=== PATIENT | female | born 1985 | race Caucasian/White ===

== ENCOUNTER 2017-04-05 21:47 | Emergency (ER) | payer OTHER ==
[~2017-04-05] VITALS: Ht 162.6 cm; Wt 77.2 kg
[~2017-04-05 21:47] MED LIST: LEVO1IUD2 PV; MTR600X PO
[2017-04-05 22:03] VITALS: TEMP 36.9; Ht 162.6 cm; Wt 77.2 kg
[2017-04-05] MEDS ORDERED: KETOROLAC TROMETHAMINE 15 MG/ML VIAL IV STA (23:22)
[2017-04-05] MEDS ORDERED: KETOROLAC TROMETHAMINE 30 MG/ML VIAL ONE (23:42)
[2017-04-05 23:45] LABS: BASO % 0.3 %; BASO ABS # 0.03 K/uL (0-0.2); EOS % 0.6 %; EOS ABS # 0.06 K/uL (0-0.5); HEMATOCRIT 38.2 % (37-47); HEMOGLOBIN 13.3 g/dL (12.0-16.0); IG# 0.02 K/uL (0.00-0.02); LYMPH % 29.7 %; LYMPH ABS # 2.78 K/uL (1.2-3.4); MEAN CELL VOLUME 92.5 fL (80-100); MEAN CORPUSCULAR HEMOGLOBIN 32.2 pg (25-34); MEAN CORPUSCULAR HGB CONC 34.8 g/dl (32-36); MEAN PLATELET VOLUME 11.1 fL (7.4-10.4); MONO % 10.2 %; MONO ABS # 0.96 K/uL (0.11-0.59); NEUT ABS # 5.52 K/uL (1.4-6.5); PLATELET COUNT 207 K/uL (130-400); RED CELL DISTRIBUTION WIDTH CV 12.7 % (11.5-14.5); RED CELL DISTRIBUTION WIDTH SD 43.2 fL (36.4-46.3); WHITE BLOOD COUNT 9.37 K/uL (4.8-10.8)
[2017-04-06] MEDS ORDERED: OPTIRAY 320 IV PRN
[2017-04-06 00:03] LABS: ALBUMIN 4.4 gm/dl (3.4-5.0); CALCIUM 9.5 mg/dl (8.5-10.1); CREATININE 0.77 mg/dl (0.60-1.20); POTASSIUM 3.8 mmol/L (3.5-5.1)
[2017-04-06 00:06] LABS: TOTAL PROTEIN 7.6 gm/dl (6.4-8.2)
[2017-04-06] MEDS ORDERED: GI COCKTAIL PO STA (01:59)
[2017-04-06] MEDS ORDERED: LIDOCAINE HCL 2% VISC SOLN 20 ML UDC ONE ×2 (02:03→02:05)
[2017-04-06] MEDS ORDERED: ALUMINUM/MAGNESIUM SUSP 30 ML UDC ONE (02:07)
[2017-04-06] MEDS ORDERED: RANITIDINE HCL 150 MG TAB PO STA (02:35)
[2017-04-06] MEDS ORDERED: OMEP40CA41 PO (02:43)
--- NOTE | 2017-04-06 02:47 | EMERGENCY ROOM VISIT NOTE ---
History First contact with patient: 23:03 Chief Complaint: ABDOMINAL PAIN Stated Complaint: RIGHT ABDOMINAL PAIN BLOATING History of Present Illness The patient is a 32 year old female who presents to the Emergency Room with complaints of right-sided abdominal pain. The patient reports that 2 days ago, she woke up with abdominal pain and bloating. She took Gas-X and MiraLAX without any improvement. She states that the pain seemed to improve yesterday, but worsened again. The pain is in the right upper abdomen and radiates into the back. She reports associated acid reflux and bloating. She has been having normal bowel movements. She reports a history of cholecystectomy and partial hysterectomy. 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 She rates her overall discomfort a 6/10. She denies fevers, urinary symptoms, vomiting, chest pain or shortness of breath. Review of Systems A complete 10 point review of systems was reviewed with the patient with pertinent positives and negatives as per history of present illness. All else were negative. Past Medical/Surgical History Medical Problems: (1) Ovarian cyst Social History Smoking Status: Never Smoker Alcohol Use: none Marital Status: Housing Status: lives with family Occupation Status: unemployed Current/Historical Medications Scheduled Levonorgestrel (Iud) (Mirena), 1 IUD PV UD Omeprazole (Prilosec), 40 MG PO DAILY Physical Exam Vital Signs Date Time Temp Pulse Resp B/P (MAP) Pulse Ox O2 Delivery O2 Flow Rate FiO2 04/06/17 02:52 70 18 121/70 98 04/06/17 01:31 80 18 137/71 99 Room Air 04/05/17 22:03 36.9 91 18 126/77 100 Room Air Physical Exam VITALS: Vitals are noted on the nurse's note and reviewed by myself. Vital signs stable. GENERAL: This is a 32-year-old female, in no acute distress, nondiaphoretic, well-developed well-nourished. SKIN: No rashes noted. HEENT: Normocephalic. PERRLA. EOMI. Mucous membranes moist. Neck is supple without nuchal rigidity. HEART: Regular rate and rhythm without murmurs gallops or rubs. LUNGS: Clear to auscultation bilaterally without wheezes, rales or rhonchi. ABDOMEN: Positive bowel sounds x 4. Soft, mild tenderness in the right upper quadrant. No guarding or rebound tenderness. NEURO: Patient was alert and oriented to person place and time. Medical Decision & Procedures ER Provider Diagnostic Interpretation: CT ABDOMEN & PELVIS WITH CONTRAST: 5.4 cm right ovarian cyst. Small amount of fluid in the pelvis. Cholecystectomy. No evidence for appendicitis. Nonobstructive bowel gas pattern. Small mesenteric nodes. Radiologist: Deysi Owens MD Laboratory Results 04/05/17 23:35 Red Blood Count 4.13, Mean Corpuscular Volume 92.5, Mean Corpuscular Hemoglobin 32.2, Mean Corpuscular Hemoglobin Concent 34.8, Mean Platelet Volume 11.1, Neutrophils (%) (Auto) 59.0, Lymphocytes (%) (Auto) 29.7, Monocytes (%) (Auto) 10.2, Eosinophils (%) (Auto) 0.6, Basophils (%) (Auto) 0.3, Neutrophils # (Auto ) 5.52, Lymphocytes # (Auto) 2.78, Monocytes # (Auto) 0.96, Eosinophils # (Auto ) 0.06, Basophils # (Auto) 0.03 04/05/17 23:35 Test 04/05/17 23:35 04/05/17 23:40 White Blood Count 9.37 K/uL (4.8-10.8) Red Blood Count 4.13 M/uL (4.2-5.4) Hemoglobin 13.3 g/dL (12.0-16.0) Hematocrit 38.2 % (37-47) Mean Corpuscular Volume 92.5 fL (80-100) Mean Corpuscular Hemoglobin 32.2 pg (25-34) Mean Corpuscular Hemoglobin Concent 34.8 g/dl (32-36) Platelet Count 207 K/uL (130-400) Mean Platelet Volume 11.1 fL (7.4-10.4) Neutrophils (%) (Auto) 59.0 % Lymphocytes (%) (Auto) 29.7 % Monocytes (%) (Auto) 10.2 % Eosinophils (%) (Auto) 0.6 % Basophils (%) (Auto) 0.3 % Neutrophils # (Auto) 5.52 K/uL (1.4-6.5) Lymphocytes # (Auto) 2.78 K/uL (1.2-3.4) Monocytes # (Auto) 0.96 K/uL (0.11-0.59) Eosinophils # (Auto) 0.06 K/uL (0-0.5) Basophils # (Auto) 0.03 K/uL (0-0.2) RDW Standard Deviation 43.2 fL (36.4-46.3) RDW Coefficient of Variation 12.7 % (11.5-14.5) Immature Granulocyte % (Auto) 0.2 % Immature Granulocyte # (Auto) 0.02 K/uL (0.00-0.02) Anion Gap 9.0 mmol/L (3-11) Est Creatinine Clear Calc Drug Dose 106.5 ml/min Estimated GFR () 119.2 Estimated GFR (Non- 102.9 BUN/Creatinine Ratio 12.3 (10-20) Calcium Level 9.5 mg/dl (8.5-10.1) Total Bilirubin 0.7 mg/dl (0.2-1) Aspartate Amino Transf (AST/SGOT) 19 U/L (15-37) Alanine Aminotransferase (ALT/SGPT) 32 U/L (12-78) Alkaline Phosphatase 56 U/L (45-117) Total Protein 7.6 gm/dl (6.4-8.2) Albumin 4.4 gm/dl (3.4-5.0) Globulin 3.2 gm/dl (2.5-4.0) Albumin/Globulin Ratio 1.4 (0.9-2) Lipase 224 U/L (73-393) Urine Color YELLOW Urine Appearance CLEAR (CLEAR) Urine pH 5.0 (4.5-7.5) Urine Specific [place] 1.014 (1.000-1.030) Urine Protein NEG (NEG) Urine Glucose (UA) NEG (NEG) Urine Ketones 1+ (NEG) Urine Occult Blood NEG (NEG) Urine Nitrite NEG (NEG) Urine Bilirubin NEG (NEG) Urine Urobilinogen NEG (NEG) Urine Leukocyte Esterase NEG (NEG) Medications Administered Medications (Trade) Dose Ordered Sig/Neno Route Start Time Stop Time Status Last Admin Dose Admin Ketorolac Tromethamine (Toradol Inj) 15 mg NOW STAT IV 04/05/17 23:22 04/05/17 23:24 DC 04/05/17 23:22 15 MG Lidocaine HCl (Viscous Lidocaine 2% Soln) 20 ml STK-MED ONCE .ROUTE 04/06/17 02:03 04/06/17 02:04 DC 04/06/17 02:11 20 ML Al Hydroxide/Mg Hydroxide (Maalox Susp) 30 ml STK-MED ONCE .ROUTE 04/06/17 02:07 04/06/17 02:08 DC 04/06/17 02:12 30 ML Ranitidine HCl (zANTac TAB) 150 mg ONE STAT PO 04/06/17 02:35 04/06/17 02:36 DC 04/06/17 02:40 150 MG Medical Decision Differential diagnosis includes gastritis, pancreatitis, cholecystitis, small bowel obstruction, diverticulitis, among others. The patient is a 32-year-old female who presents today complaining of upper abdominal pain. Labs revealed no leukocytosis, anemia or concerning electrolyte abnormalities. Lipase was not elevated. LFTs within normal limits. Urinalysis was not suggestive of infection. CT of the abdomen and pelvis was performed and read by statrad and did show a right-sided ovarian cyst , however this does not seem likely to be causing the patient's discomfort. She will be treated for presumed gastritis and was given a prescription for omeprazole. He did have a lengthy discussion with the patient regarding the need for follow-up with a primary care provider regarding her symptoms. Dietary changes were also discussed with the patient. The patient's case was reviewed with Dr. Ruiz, ED attending physician, who agreed with my assessment and treatment plan. Based on the patient's presentation and work up, I feel the patient is stable for outpatient treatment. The patient was educated to return to the emergency department for any worsening of their current condition or new/concerning symptoms. She will follow up with her PCP. Medication Reconcilliation Current Medication List: was personally reviewed by me Blood Pressure Screening Patient's blood pressure: Normal blood pressure Impression Primary Impression: Upper abdominal pain Departure Information Dispostion Home / Self-Care Condition GOOD Prescriptions Omeprazole (PRILOSEC) 40 Mg Cap 40 MG PO DAILY for 14 Days, #14 CAP Prov: Nighat Baptiste .TODD 04/06/17 Referrals Stacy Jim (PCP) Patient Instructions My [facility] Additional Instructions You have been treated in the Emergency Department for your Abdominal Pain. Laboratory results and imaging studies have ruled out any emergent causes for your abdominal pain which would warrant admission or surgery. Prilosec, 40 mg every morning before you have anything to eat. Keep a very bland diet for the next several days, then advance as tolerated. You should eat things like bananas, rice, applesauce, toast, crackers, etc. For pain control, you can use the following pqpw-[id number] medicines (if >12 yo): - Regular strength (325mg/tab) Tylenol (acetaminophen) 2 tabs every 4-6 hours as needed. Do not exceed 12 tablets in a 24 hour period. Avoid taking more than 4 grams (4000 mg) of Tylenol per day. This includes any other sources of acetaminophen you may take on a regular basis. Drink plenty of water and stay well hydrated. As with any trip to the Emergency Department, you should follow-up with your Primary Care Provider from today's visit. Return to the emergency department if your symptoms persist despite treatment plan outlined above or if the following symptoms occur: Fevers, worsening abdominal pain, vomiting, passing out, or any other new/concerning symptoms.
[2017-04-06 02:52] VITALS: BP 121/70; PULSE 70; O2SAT 98
--- NOTE | 2017-04-06 07:46 | DIAGNOSTIC IMAGING REPORT ---
ABD/PELVIS IV CONTRAST ONLY CLINICAL HISTORY: 32 years-old Female presenting with right upper abdominal pain, bloating. TECHNIQUE: Multidetector CT of the abdomen and pelvis was performed after the administration of intravenous contrast. IV contrast: 94 mL of Optiray 320. A dose lowering technique was used consistent with the principles of ALARA (as low as reasonably achievable). COMPARISON: 03/07/2012. CT DOSE (mGy.cm): The estimated cumulative dose is 424.16 mGy.cm. 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 Lung bases: Lungs and pleural spaces clear. Normal heart size. No pericardial or pleural effusion. Liver: Normal morphology. No liver lesion. Patent hepatic vasculature. Biliary: No intrahepatic or extrahepatic biliary ductal dilatation. Gallbladder surgically absent. Pancreas: Normal. Spleen: Normal. Adrenal glands: Normal. Kidneys and ureters: Normal. No hydronephrosis. Bladder: Mild circumferential bladder wall thickening. Pelvic organs: Simple appearing 5.6 cm this is concerning for right adnexa. A right ovarian functional cyst was present in this region on prior exam in 2012. Additional right ovarian follicles. Left ovary normal. Uterus could be normal for the phase of menstruation. Bowel: Normal appendix. No bowel obstruction. Peritoneal cavity: Small free fluid in the pelvis. Lymph nodes: No enlarged lymph nodes in the abdomen or pelvis. Vasculature: Aorta and IVC patent and normal in caliber. Abdominal wall: Normal. Musculoskeletal: Normal. IMPRESSION: 1. Benign-appearing 5.6 cm cyst likely in the right ovary. Given the size and premenopausal status of the patient, a follow-up ultrasound in 6-12 weeks is recommended per the [employer] incidental findings committee II on adnexal findings. 2. Free fluid in the pelvis likely physiologic, related to the presence of ovarian cysts/follicles. 3. Mild circumferential bladder wall thickening could suggest cystitis. Correlate with urinalysis. The report will be called/faxed according to standard departmental protocol. Electronically signed by: Geoffrey Salas M.D. 04/06/2017 7:45 AM Dictated Date/Time: 04/06/2017 6:56 AM
== END 2017-04-06 02:52 | disposition home or self-care (01) ==
LOC: C.EDB 21:48
DX: R10.11 Right upper quadrant pain (principal); E28.2 Polycystic ovarian syndrome; Z97.5 Presence of (intrauterine) contraceptive device; Z90.49 Acquired absence of other specified parts of digestive tract; Z90.711 Acquired absence of uterus with remaining cervical stump; Z90.721 Acquired absence of ovaries, unilateral

== ENCOUNTER → 2017-04-14 | Outpatient (CLI) | payer OTHER ==
[~2017-04-14] MED LIST changes: +CRFL PO; -MTR600X PO; +OMEP40CA41 PO; +RANI150T85 PO
[2017-04-14 17:28] LABS: HEMATOCRIT 37.8 % (37-47); HEMOGLOBIN 12.9 g/dL (12.0-16.0); MEAN CORPUSCULAR HEMOGLOBIN 32.1 pg (25-34); MEAN CORPUSCULAR HGB CONC 34.1 g/dl (32-36); MEAN PLATELET VOLUME 11.7 fL (7.4-10.4); PLATELET COUNT 216 K/uL (130-400); RED CELL DISTRIBUTION WIDTH CV 12.7 % (11.5-14.5)
[2017-04-14 18:12] LABS: ALBUMIN 4.3 gm/dl (3.4-5.0); ALT/SGPT 41 U/L (12-78); AST/SGOT 31 U/L (15-37); BLOOD UREA NITROGEN 11 mg/dl (7-18); CALCIUM 9.3 mg/dl (8.5-10.1); CARBON DIOXIDE 24 mmol/L (21-32); CREATININE 0.75 mg/dl (0.60-1.20); GLUCOSE 95 mg/dl (70-99); LIPASE 219 U/L (73-393); POTASSIUM 3.6 mmol/L (3.5-5.1); SODIUM 139 mmol/L (136-145)
[2017-04-14 18:23] LABS: ALKALINE PHOSPHATASE 59 U/L (45-117); TOTAL PROTEIN 7.7 gm/dl (6.4-8.2)
== END | disposition home or self-care (01) ==
LOC: C.LABPVFM 13:38
PROVIDERS: ATTEND Family Medicine
DX: R10.9 Unspecified abdominal pain (principal)

== ENCOUNTER → 2017-10-22 | Outpatient (CLI) | payer OTHER ==
[~2017-10-22] MED LIST changes: -LEVO1IUD2 PV
== END | disposition home or self-care (01) ==
LOC: C.LABSPEC 17:52
PROVIDERS: ATTEND Obstetrics & Gynecology
DX: R39.9 Unspecified symptoms and signs involving the genitourinary system (principal); L29.2 Pruritus vulvae

== ENCOUNTER 2018-05-24 17:44 | Inpatient (IN) ==
[2018-05-24 18:40] LABS: Basophils # (auto) 0.01 K/uL (0-0.2); Basophils % (auto) 0.1 %; Hematocrit (blood only) 42.8 % (37-47); Hemoglobin 14.7 g/dL (12.0-16.0); Immature Granulocytes # (auto) 0.05 K/uL (0.00-0.02); Immature Granulocytes % (auto) 0.4 %; Lymphocytes # (auto) 2.01 K/uL (1.2-3.4); Lymphocytes % (auto) 14.6 %; Mean Corpuscular Hgb Conc 34.3 g/dL (32-36); Mean Corpuscular Volume 95.1 fL (80-100); Monocytes # (auto) 0.76 K/uL (0.11-0.59); Monocytes % (auto) 5.5 %; Neutrophils # (auto) 10.93 K/uL (1.4-6.5); Neutrophils % (auto) 79.4 %; Platelet Count 225 K/uL (130-400); RDW Standard Deviation 45.4 fL (36.4-46.3); White Blood Count 13.76 K/uL (4.8-10.8)
[2018-05-24 18:53] LABS: Appearance Urine Clear (Clear); Bilirubin Urine Negative (Negative); Blood Urine Negative (Negative); Color Urine Yellow; Glucose Urine UA Negative (Negative); Ketones Urine Negative (Negative); Leukocyte Esterase Urine Negative (Negative); Nitrite Urine Negative (Negative); Protein Urine Negative (Negative); Specific Gravity Urine 1.008 (1.000-1.030); Urobilinogen Urine Negative (Negative)
[2018-05-24 18:56] LABS: Pregnancy Test, Urine Negative (Negative)
[2018-05-24 19:01] LABS: Albumin Level 4.5 gm/dl (3.4-5.0); BUN Creatinine Ratio 13.4 (10-20); Calcium 9.5 mg/dl (8.5-10.1); Creatinine Clr Calc Pharmacy 99.4 ml/min; Est GFR (African American) 111.4; Est GFR (Non-African American) 96.1; Potassium 3.6 mmol/L (3.5-5.1)
[2018-05-24 19:04] LABS: Albumin Globulin Ratio 1.3 (0.9-2); Bilirubin,Total 0.9 mg/dl (0.2-1); Globulin 3.5 gm/dl (2.5-4.0)
--- NOTE | 2018-05-24 19:30 | Emergency Department Note ---
History of Present Illness General Chief complaint: Abdominal Pain Stated complaint: LOWER ABDOMINAL PAIN W MASS ON OVARY Time Seen by Provider: 05/24/18 18:03 History of Present Illness Maximum Pain Intensity: 4 This patient is a 33-year-old female who presents to the emergency department for evaluation of lower abdominal pain/pressure that started today. It was sudden in onset. She rates her discomfort a 6/10. It is worse with movement and standing. She has not taken anything [id number] for pain. She also has been urinating frequently. She denies any dysuria or hematuria. No vaginal bleeding. No fever or chills. Bowel movements have been regular. The patient reports having a CT scan performed a few weeks ago. She was diagnosed with a 7 cm right ovarian dermoid cyst. She saw her PATIENT REPRESENTATIVE doctor yesterday. She is scheduled for surgery in the next several weeks with her PATIENT REPRESENTATIVE doctor. The patient is . She has had 5 miscarriages. She denies any recent sexual activity. Home Medications Home Medications Medication Instructions Recorded Confirmed Type prednisone 25 mg PO UD 05/24/18 05/24/18 History Allergies Allergy/AdvReac Type Severity Reaction Status Date / Time clonazepam [From Klonopin] AdvReac Unknown doesn't Unverified 05/24/18 18:05 remember Past Med/Surg History Medical History Abdominal bloating Abdominal pain Anxiety no meds Depression no meds Kidney stones Surgical History History of cholecystectomy History of esophagogastroduodenoscopy (EGD) History of left breast biopsy benign History of left salpingo-oophorectomy History of salpingectomy right History of tonsillectomy and adenoidectomy History of tooth extraction History of wisdom tooth extraction Family History Father Family history of diabetes mellitus Family hx colonic polyps Other No family history of adverse response to anesthesia Social History Preferred Language: Chadian Communication Ability: Effective Beliefs That Will Affect Care: None Current Living Situation: Spouse and Family Current Living Situation Comment: lives with and 3 kids Feels Safe at Home: Yes Smoking Status: Never smoker Hx Alcohol Use: No Hx Substance Use: No Review of Systems A total of 10 systems reviewed and were otherwise negative Physical Exam Vital Signs Vital Signs - 24 hr 05/24/18 17:49 05/24/18 19:48 05/24/18 20:52 Temperature 36.7 C Temperature Source Oral Sepsis Recent Fever Within 48 Hours No Sepsis New/Unexplained Change in Mental Status No Sepsis Action Taken by Nursing No Action Required Pulse Rate 91 H Pulse Rate [Right Finger] 75 73 Respiratory Rate 20 18 18 Respiratory Effort / Characteristics Respiratory Depth Respiratory Pattern Blood Pressure 141/82 H Blood Pressure [Left Arm] 119/74 108/58 L Blood Pressure Mean 101 Blood Pressure Mean [Left Arm] 89 74 Blood Pressure Position [Left Arm] Sitting Pulse Oximetry 100 100 96 Oxygen Delivery Method Room Air Room Air Room Air 05/24/18 22:05 05/24/18 22:08 Temperature Temperature Source Sepsis Recent Fever Within 48 Hours Sepsis New/Unexplained Change in Mental Status Sepsis Action Taken by Nursing Pulse Rate Pulse Rate [Right Finger] 87 Respiratory Rate 22 Respiratory Effort / Characteristics Non-Labored Respiratory Depth Normal Respiratory Pattern Regular Blood Pressure Blood Pressure [Left Arm] 116/78 Blood Pressure Mean Blood Pressure Mean [Left Arm] 90 Blood Pressure Position [Left Arm] Pulse Oximetry 98 98 Oxygen Delivery Method Room Air Room Air Constitutional WD/WN, vitals as above Eyes EOM intact bilaterally ENMT external ear and nose normal, oropharynx normal Neck trachea midline Respiratory normal respiratory effort, lungs clear to auscultation Cardiovascular RRR, no murmur, no edema Gastrointestinal (Abdomen) Slight abdominal distention noted. Tenderness to palpation particularly in the suprapubic region. No guarding or rebound tenderness. Bowel sounds present in all 4 quadrants. Musculoskeletal no cyanosis or clubbing, extremities motor strength 5/5 Skin no rashes, warm and dry Neurologic Alert and oriented x3. No focal motor deficits. Psychiatric Acting appropriately Course Patient was seen and examined Vital signs including blood pressure were reviewed medications list was verified with patient Labs were obtained, and a saline lock was established The patient declined pain medication Imaging was performed and reviewed Upon reassessment, the patient was resting comfortably. We discussed her results. She voiced understanding. The patient was discussed with PATIENT REPRESENTATIVE on-call. They kindly agreed to come and evaluate the patient. The case was then discussed again with Dr. Patricio. The patient will be taken to the operating room for further treatment. Consultations Consultation #1: Dr. Patricio Medical Decision Making Medical Records Attestation: I reviewed the patient's medical records. Home Medications Current Medication List: was personally reviewed by me Laboratory Data Attestation: I reviewed the patient's lab results. Result diagrams: 05/24/18 18:19 05/24/18 18:19 Lab Results 05/24/18 05/24/18 05/24/18 Range/Units 18:19 18:19 18:41 WBC 13.76 H (4.8-10.8) K/uL RBC 4.50 (4.2-5.4) M/uL Hgb 14.7 (12.0-16.0) g/dL Hct 42.8 (37-47) % MCV 95.1 (80-100) fL MCH 32.7 (25-34) pg MCHC 34.3 (32-36) g/dL RDW Std Deviation 45.4 (36.4-46.3) fL RDW Coeff of Priscilla 13.0 (11.5-14.5) % Plt Count 225 (130-400) K/uL MPV 11.0 H (7.4-10.4) fL Immature Gran % (Auto) 0.4 % Neut % (Auto) 79.4 % Lymph % (Auto) 14.6 % [place] % (Auto) 5.5 % Eos % (Auto) 0.0 % Baso % (Auto) 0.1 % Immature Gran # (Auto) 0.05 H (0.00-0.02) K/uL Neut # (Auto) 10.93 H (1.4-6.5) K/uL Lymph # (Auto) 2.01 (1.2-3.4) K/uL [place] # (Auto) 0.76 H (0.11-0.59) K/uL Eos # (Auto) 0.00 (0-0.5) K/uL Baso # (Auto) 0.01 (0-0.2) K/uL Sodium 139 (136-145) mmol/L Potassium 3.6 (3.5-5.1) mmol/L Chloride 107 (98-107) mmol/L Carbon Dioxide 25 (21-32) mmol/L Anion Gap 7.0 (3-11) BUN 11 (7-18) mg/dl Creatinine 0.81 (0.6-1.2) mg/dl Est Cr Clr Drug Dosing 99.4 ml/min Est GFR ( Amer) 111.4 Est GFR (Non-Af Amer) 96.1 BUN/Creatinine Ratio 13.4 (10-20) Glucose 87 (70-99) mg/dl Calcium 9.5 (8.5-10.1) mg/dl Total Bilirubin 0.9 (0.2-1) mg/dl AST 45 H (15-37) U/L ALT 145 H (12-78) U/L Alkaline Phosphatase 69 (45-117) U/L Total Protein 8.0 (6.4-8.2) gm/dl Albumin 4.5 (3.4-5.0) gm/dl Globulin 3.5 (2.5-4.0) gm/dl Albumin/Globulin Ratio 1.3 (0.9-2) Lipase 164 (73-393) U/L Urine Color Urine Appearance (Clear) Urine pH (4.5-7.5) Ur Specific [place] (1.000-1.030) Urine Protein (Negative) Urine Glucose (UA) (Negative) Urine Ketones (Negative) Urine Blood (Negative) Urine Nitrite (Negative) Urine Bilirubin (Negative) Urine Urobilinogen (Negative) Ur Leukocyte Esterase (Negative) Urine Test Negative (Negative) 05/24/18 Range/Units 18:41 WBC (4.8-10.8) K/uL RBC (4.2-5.4) M/uL Hgb (12.0-16.0) g/dL Hct (37-47) % MCV (80-100) fL MCH (25-34) pg MCHC (32-36) g/dL RDW Std Deviation (36.4-46.3) fL RDW Coeff of Priscilla (11.5-14.5) % Plt Count (130-400) K/uL MPV (7.4-10.4) fL Immature Gran % (Auto) % Neut % (Auto) % Lymph % (Auto) % [place] % (Auto) % Eos % (Auto) % Baso % (Auto) % Immature Gran # (Auto) (0.00-0.02) K/uL Neut # (Auto) (1.4-6.5) K/uL Lymph # (Auto) (1.2-3.4) K/uL [place] # (Auto) (0.11-0.59) K/uL Eos # (Auto) (0-0.5) K/uL Baso # (Auto) (0-0.2) K/uL Sodium (136-145) mmol/L Potassium (3.5-5.1) mmol/L Chloride (98-107) mmol/L Carbon Dioxide (21-32) mmol/L Anion Gap (3-11) BUN (7-18) mg/dl Creatinine (0.6-1.2) mg/dl Est Cr Clr Drug Dosing ml/min Est GFR ( Amer) Est GFR (Non-Af Amer) BUN/Creatinine Ratio (10-20) Glucose (70-99) mg/dl Calcium (8.5-10.1) mg/dl Total Bilirubin (0.2-1) mg/dl AST (15-37) U/L ALT (12-78) U/L Alkaline Phosphatase (45-117) U/L Total Protein (6.4-8.2) gm/dl Albumin (3.4-5.0) gm/dl Globulin (2.5-4.0) gm/dl Albumin/Globulin Ratio (0.9-2) Lipase (73-393) U/L Urine Color Yellow Urine Appearance Clear (Clear) Urine pH 6.0 (4.5-7.5) Ur Specific [place] 1.008 (1.000-1.030) Urine Protein Negative (Negative) Urine Glucose (UA) Negative (Negative) Urine Ketones Negative (Negative) Urine Blood Negative (Negative) Urine Nitrite Negative (Negative) Urine Bilirubin Negative (Negative) Urine Urobilinogen Negative (Negative) Ur Leukocyte Esterase Negative (Negative) Urine Test (Negative) Imaging Data Attestation: I personally reviewed and interpreted this imaging study as follows: Radiologist's Impression: Pelvic ultrasound PELVIC ULTRASOUND, TRANSABDOMINAL AND TRANSVAGINAL HISTORY: RLQ pain hx large cyst COMPARISON: Pelvic ultrasound . Abdomen and pelvis CT 05/20/2018. FINDINGS: Uterus: 9.5 x 6.1 x 4.9 cm. The uterus is retroflexed. There are are a few small nabothian cysts. Endometrial stripe: 1 cm in thickness. Right ovary: 7.7 x 8.3 x 5.0 cm. There is normal color flow within the liver and tissue. There is a 7 cm right ovarian dermoid. Left ovary: Surgically absent. Miscellaneous:No pelvic free fluid. IMPRESSION: 1. Redemonstration of the 7 cm right ovarian dermoid. The surrounding right ovarian tissue demonstrates normal color flow. 2. The left ovary is surgically absent. 3. Retroflexed uterus. Electronically signed by: Silvio Merchant M.D. 05/24/2018 9:05 PM Dictated: 05/24/182100 Transcribed: 05/24/182100 MDM Narrative Differential diagnosis: Ovarian cyst, ovarian torsion, ectopic , uterine fibroid, appendicitis, bowel obstruction, diverticulitis, UTI, among others At this patient is a 33-year-old female presents to the emergency department with complaints of a sudden onset of abdominal pain. On exam, she was uncomfortable. She did not appear to have an acute abdomen. No guarding or rebound tenderness. Her labs reveal leukocytosis-likely secondary to the fact that the patient was started on steroids for her ileitis. The patient's ultrasound reveals a 7 x 8 x 5 cm dermoid cyst on the right ovary. This likely explains her discomfort. PATIENT REPRESENTATIVE was consulted.. We discussed the case. As the patient only has one ovary, she will be taken to the OR to rule out torsion and removal of the large cyst. The patient was in agreement with this plan. Impression & Plan Dermoid cyst of right ovary Discharge Plan Visit Data *Final* Discharge Date/Time: 05/24/18 22:09 Chief Complaint: Abdominal Pain Stated Complaint: LOWER ABDOMINAL PAIN W MASS ON OVARY ED Provider: Thomas Mckeon ED Midlevel Provider: Brigida Vizcaino Discharge Problem: Dermoid cyst of right ovary Patient Disposition: Admitted As Inpatient Discharge Instructions Interventions: ED Discharge Assessment Last Done: 05/24/18 22:08
--- NOTE | 2018-05-24 21:06 | Ultrasound Report ---
PELVIC ULTRASOUND, TRANSABDOMINAL AND TRANSVAGINAL HISTORY: RLQ pain hx large cyst COMPARISON: Pelvic ultrasound . Abdomen and pelvis CT 05/20/2018. FINDINGS: Uterus: 9.5 x 6.1 x 4.9 cm. The uterus is retroflexed. There are are a few small nabothian cysts. Endometrial stripe: 1 cm in thickness. Right ovary: 7.7 x 8.3 x 5.0 cm. There is normal color flow within the liver and tissue. There is a 7 cm right ovarian dermoid. Left ovary: Surgically absent. Miscellaneous:No pelvic free fluid. IMPRESSION: 1. Redemonstration of the 7 cm right ovarian dermoid. The surrounding right ovarian tissue demonstrat es normal color flow. 2. The left ovary is surgically absent. 3. Retroflexed uterus. Electronically signed by: Silvio Merchant M.D. 05/24/2018 9:05 PM
[2018-05-24] MEDS ORDERED: fentaNYL citrate 100 MCG/2 ML VIAL IV PRN (22:08)
[2018-05-24] MEDS ORDERED: ePHEDrine sulfate 50 MG/ML AMP IV PRN (22:08)
[2018-05-24] MEDS ORDERED: ATROPINE SULFATE 0.1 MG/ML 10ML SYR IV PRN (22:08)
[2018-05-24] MEDS ORDERED: ONDANSETRON INJ 2 MG/ML 2 ML VIAL IV PRN (22:08)
[2018-05-24] MEDS ORDERED: LIDOCAINE HCL 2% 2 ML VIAL/AMP(20MG/ML) INFIL ONE (22:12)
[2018-05-24] MEDS ORDERED: fentaNYL citrate 100 MCG/2 ML VIAL ONE ×2 (22:12→22:32)
[2018-05-24] MEDS ORDERED: PROPOFOL IV EMULSION 10 MG/ML 20 ML VIAL IV ONE (22:12)
[2018-05-24] MEDS ORDERED: ONDANSETRON INJ 2 MG/ML 2 ML VIAL ONE (22:12)
[2018-05-24] MEDS ORDERED: LACTATED RINGER'S 1,000 ML IV SCH (22:15)
--- NOTE | 2018-05-24 22:22 | History & Physical Report ---
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 She was scheduled for LPSC removal with the da Bhaskar on 06/17. However, there has now been a change in her pain status which she notes is different from the pain she has been experiencing with her bowels. I cannot tell her with certainty that this one remaining ovary is not torsed. The only way I will know is to explore her tonight. She really does not want to lose this ovary resulting in menopause at age 33. I feel , in my hands, the best way to preserve this ovary is to perform a mini-laparotomy and ovarian cystectomy. If it is torsed, I will untorse and remove cyst. Hopefullly she can then get function back to the ovary as likely torsed for less than 12 hours. Understands that she might lose her ovary in this and understands that this will make her menopausal. She had discussed this in detail with Dr. Hernandes who was to do this surgery for her. She also understands, that it may not be torsed and that I will be removing the cyst . She understands that likely her pain will remain and is likely due to another source, ie bowel. We did discuss the possibility of expectant management, but if the ovary is torsed, the longer we wait, the more likely she is to lose the ovary. She wishes to proceed with surgical evaluation. Plan mini-laparotomy, release of possible torsion, right ovarian cystectomy, possible right oophrectomy. risks, benefits and side effects were discussed including bleeding, transfusion, anesthesia, infection, poor wound healing, damage to surrounding structures, need for further surgery and persistence of pain. Consent reviewed and signed and will proceed to the OR. Present on Admission?: Yes (2) Abdominal pain, generalized: Present on Admission?: Yes History of Present Illness Chief Complaint: rlq, rectal pain Primary Care Provider: Mariana Freedman MD Patient is a 33yowf with bilateral salpingectomies who presents to the ED with sudden onset rlq and rectal pain. Hx significant for bilateral dermoid cysts for which she underwent LSO and right salpingectomy and right cystectomy previously. She was told about a 15% chance of recurrence in the right. She has been having bowel issues for several months and is being followed by GI. Recent colonoscopy concerning for Crohn's, but biopsies did not confirm. REcent CT on 05/17 showed inflammation of the ileum for which she was placed on steriods AND incidentally found a 7cm likely dermoid of the right ovary. She notes the pain that she has been having with her bowels is different from this pain. She was doing some house cleaning today when she had sudden onset of rlq and rectal pressure. It comes and goes. The rectal pressure makes her unable to sit. She notes the discomfort is much lower than what she typically has. She has not had nausea or vomiting. Last normal BM was this am. she notes her last period started 05/09. She has been on steroids for the ileitis starting with 40 and now down to 25mg daily. Patient had an ultrasound in the ED today--this shows a 7.7x8.3x5.0cm ovary with a 7cm probable dermoid. no free fluid. No mention of blood flow to either ovary noted in the report, although notes normal color flow around the surrounding tissue.. wbc 13K Allergies Allergy/AdvReac Type Severity Reaction Status Date / Time clonazepam [From Klonopin] AdvReac Unknown doesn't Unverified 05/24/18 18:05 remember Home Medications Home Medications Medication Instructions Recorded Confirmed Type prednisone 25 mg PO UD 05/24/18 05/24/18 History Patient History Medical History Abdominal bloating Abdominal pain Anxiety no meds Depression no meds Kidney stones Surgical History History of cholecystectomy History of esophagogastroduodenoscopy (EGD) History of left breast biopsy benign History of left salpingo-oophorectomy History of salpingectomy right History of tonsillectomy and adenoidectomy History of tooth extraction History of wisdom tooth extraction Family History Father Family history of diabetes mellitus Family hx colonic polyps Other No family history of adverse response to anesthesia Social History Preferred Language: Mauritanian Communication Ability: Effective Beliefs That Will Affect Care: None Current Living Situation: Spouse and Family Current Living Situation Comment: lives with and 3 kids Feels Safe at Home: Yes Smoking Status: Never smoker Hx Alcohol Use: No Hx Substance Use: No OB History Patient has hx of three vaginal deliveries and 5 miscarriages LIME P[employer]ER History as noted in hpi Review of Systems All systems reviewed & are unremarkable except as noted in HPI & below Physical Exam Vital Signs (Past 24 Hours): Last Vital Signs Temp 36.7 C 05/24/18 17:49 Pulse 73 05/24/18 20:52 Resp 18 05/24/18 20:52 BP 108/58 L 05/24/18 20:52 Pulse Ox 96 05/24/18 20:52 Constitutional: WD/WN, vitals as above She appears uncomfortable on the bed, only comfortable on her left side. Respiratory: normal respiratory effort, lungs clear to auscultation normal respiratory effort Cardiovascular: RRR, no murmur, no edema Gastrointestinal (Abdomen): Inspection/Auscultation: + abdomen distended and normal bowel sounds Percussion/Palpation: abdomen soft; abdomen nontender and no guarding Genitourinary: deferred
--- NOTE | 2018-05-24 22:24 | Anesthesiology Consultation ---
Date of Service May 24, 2018 Assessment & Plan (1) Encounter for pre-operative examination: Chart Review Chart Review: Acceptable Risk for Surgery Consults Requested none ASA [id number] Proposed Anesthesia Anesthesia Type: General Risk / Benefits Reviewed With: PT / POA / Parent / Guardian, Accepts Plan and Informed Consent Obtained NPO Date Last Intake of Fluids: 05/24/18 Time Last Intake of Fluids: 17:00 Date Last Intake of Solids: 05/24/18 Time Last Intake of Solids: 08:00 History Surgery Operation Date: 05/24/18 22:30 Proposed Procedures p Ovarian Cystectomy - Brigida Patricio MD, FACOG Height/Weight Height: 5 ft 5 in Weight: 72.4 kg Allergies Allergy/AdvReac Type Severity Reaction Status Date / Time clonazepam [From Klonopin] AdvReac Unknown doesn't Unverified 05/24/18 18:05 remember Medications Home Medications Medication Instructions Recorded Confirmed Last Taken prednisone 25 mg PO UD 05/24/18 05/24/18 Unknown Past Medical History Medical History Abdominal bloating Abdominal pain Anxiety no meds Depression no meds Kidney stones Past Family History Family History Father Family history of diabetes mellitus Family hx colonic polyps Other No family history of adverse response to anesthesia Past Surgical History Surgical History History of cholecystectomy History of esophagogastroduodenoscopy (EGD) History of left breast biopsy benign History of left salpingo-oophorectomy History of salpingectomy right History of tonsillectomy and adenoidectomy History of tooth extraction History of wisdom tooth extraction Past Anesthesia History No Hx of Anesthesia Complications and No Family Hx of Anesthesia Complications History of PONV No Motion Sickness Screening History of Motion Sickness: No Social History Smoking Status: Never smoker Hx Alcohol Use: No Hx Substance Use: No substance use type: does not use Exercise / Class Metabolic Activity II 4-5 Yardwork/Stairs/Walk up hill Physical Exam Vital Signs Last Vital Signs Temp 98.1 F 05/24/18 17:49 Pulse 87 05/24/18 22:05 Resp 22 05/24/18 22:05 BP 116/78 05/24/18 22:05 Pulse Ox 98 05/24/18 22:08 ENMT Mouth: no dentition abnormality Thyromental Distance: > or= 3.5 Finger Breadths Mallampati Class: II Neck normal visual inspection Respiratory normal respiratory effort Auscultation: lungs clear to auscultation bilaterally Cardiovascular Rate/Rhythm: regular rate and regular rhythm Testing Laboratory Results 05/24/18 18:19 05/24/18 18:19 Urine Color Yellow 05/24/18 18:41 Urine Appearance Clear (Clear) 05/24/18 18:41 Urine pH 6.0 (4.5-7.5) 05/24/18 18:41 Ur Specific [place] 1.008 (1.000-1.030) 05/24/18 18:41 Urine Protein Negative (Negative) 05/24/18 18:41 Urine Glucose (UA) Negative (Negative) 05/24/18 18:41 Urine Ketones Negative (Negative) 05/24/18 18:41 Urine Nitrite Negative (Negative) 05/24/18 18:41 Ur Leukocyte Esterase Negative (Negative) 05/24/18 18:41 Urine Test Negative (Negative) 05/24/18 18:41 05/24/18 18:41 Urine Test Negative
[2018-05-24] MEDS ORDERED: CEFAZOLIN 2000MG 2,000 MG/15 ML SYR IV ONE (22:30)
[2018-05-24] MEDS ORDERED: CEFAZOLIN 250 MG/ML 1 GM VIAL ONE (22:31)
[2018-05-24] MEDS ORDERED: DEXAMETHASONE SOD INJ 4 MG/ML VIAL ONE (23:10)
[2018-05-24] MEDS ORDERED: GLYCOPYRROLATE 0.2 MG/ML VIAL ONE (23:25)
[2018-05-24] MEDS ORDERED: NEOSTIGMINE METHYLSULFATE 5 MG/5 ML SYR ONE (23:25)
--- NOTE | 2018-05-24 23:50 | Post Operative Brief Note ---
Immediate Post Op Note v1 Date of Surgery May 24, 2018 Pre & Post Diagnosis Operation Date: 05/24/18 22:30 Pre-Op Diagnosis: LOWER ABDOMINAL PAIN W MASS ON OVARY Post-Op Diagnosis: LOWER ABDOMINAL PAIN W MASS ON OVARY Procedure Operation Date: 05/24/18 22:30 Actual Procedures p Mini Laparotomy and Right Ovarian Cystectomy(Right) - Brigida Patricio MD, FACOG Surgeon Brigida Patricio MD, FACOG Renal Nurse nursing Estimated Blood Loss 10 Findings Consistent with Post-Op Diagnosis Drains Israel Catheter (Placed at start of procedure without difficulty. Removed at end of procedure. )
--- NOTE | 2018-05-25 00:03 | Anesthesiology Progress Note ---
Date of Service May 25, 2018 Anesthesia Post Procedure Vital Signs Vital Signs: Temp Pulse Pulse Resp BP BP Pulse Ox 05/24/18 22:08 98 05/24/18 22:05 87 22 116/78 98 05/24/18 20:52 73 18 108/58 L 96 05/24/18 19:48 75 18 119/74 100 05/24/18 17:49 98.1 F 91 H 20 141/82 H 100 Pain Intensity Right Lower Abdomen: Pain Intensity: 3 Notes Mental Status: alert / awake / arousable and participated in evaluation Patient Amnestic to Procedure: Yes Nausea / Vomiting: adequately controlled Pain: adequately controlled Airway Patency, RR, SpO2: stable & adequate BP & HR: stable & adequate Hydration State: stable & adequate Anesthetic Complications: no major complications apparent and Pt Satisfied with anesthetic care
[2018-05-25] MEDS ORDERED: MoRPHine SULFATE 2 MG/ML CARP IV PRN ×2 (00:04)
[2018-05-25] MEDS ORDERED: IBUPROFEN 200 MG TAB PO PRN (00:04)
[2018-05-25] MEDS ORDERED: MoRPHine SULFATE 4 MG/ML 1 ML CARP\\VIAL IV PRN (00:04)
[2018-05-25] MEDS ORDERED: OXYCODONE/ACETAMINOPHEN 5mg/325mg TAB PO PRN (00:04)
[2018-05-25] MEDS ORDERED: ACETAMINOPHEN 325 MG TAB PO PRN (00:04)
[2018-05-25] MEDS ORDERED: ACETAMINOPHEN 650 MG SUPP PR PRN (00:04)
[2018-05-25] MEDS ORDERED: KETOROLAC 30 MG/ML VIAL IV PRN (00:04)
[2018-05-25] MEDS ORDERED: LACTATED RINGER'S 1,000 ML IV SCH (00:15)
[2018-05-25] MEDS ORDERED: MEPERIDINE HCL 25 MG/ML CARP ONE (00:17)
[2018-05-25] MEDS ORDERED: MEPERIDINE HCL 25 MG/ML CARP IV PRN (00:24)
[2018-05-25] MEDS ORDERED: ROCURONIUM BROMIDE 10 MG/ML 5 ML VIAL ONE (00:38)
[2018-05-25] MEDS: KETOROLAC 30 MG/ML VIAL IV PRN ×2 (01:49→07:30)
--- NOTE | 2018-05-25 01:54 | Operative Report ---
DATE OF OPERATION: 05/24/2018 PREOPERATIVE DIAGNOSES: 1. 7 cm right ovarian cystic mass suspected to be dermoid. 2. Sudden onset rectal and right lower quadrant pain. POSTOPERATIVE DIAGNOSIS: A 7-cm right ovarian dermoid. PROCEDURE: Minilaparotomy with right ovarian cystectomy. SURGEON: Brigida Patricio MD. REAL ESTATE SERVICES COORDINATOR: Nursing. ANESTHESIA: General per endotracheal tube. ESTIMATED BLOOD LOSS: 10 mL. FLUIDS: 1200 mL. URINE OUTPUT: 200 mL of clear yellow urine drained from the bladder at the end of the procedure. INDICATIONS: The patient is a 33-year-old 8, para 5-0-3-5, with a history of a left oophorectomy for dermoid cyst. She was having GI issues and underwent a CT scan and was found to have an incidental 7 cm right probable dermoid cyst. Today, the patient experienced sudden onset of fairly severe rectal and right lower quadrant pain that was intermittent, unsure if this ovary was torsed. Given the fact that this is the patient's only ovary, she is 33 years old, decision was made to explore her to see if there was torsion and to remove the cyst. FINDINGS: Right ovary was approximately 8 cm in size. It was tucked in underneath the uterus overlying the rectum. It was not torsed. Both tubes were surgically absent. The left ovary was surgically absent. Uterus appeared normal. Palpation of the upper abdomen revealed no abnormal findings. COMPLICATIONS: None. DRAINS: None. DISPOSITION: To recovery room in stable condition. DESCRIPTION OF PROCEDURE: The patient was taken to the operating room where she was identified verbally and by bracelet. She was placed in the dorsal supine position where general anesthesia was induced without difficulty. A Israel catheter was placed sterilely. She was prepped and draped in normal sterile fashion in the supine position. A time-out was held, identifying correct patient, procedure, positioning, and preoperative antibiotics. A minilaparotomy incision was made 1 fingerbreadth above the pubic bone with a knife. This was taken to the underlying layer of fascia with Bovie electrocautery. Bleeding was attended to with Bovie electrocautery. The fascia was incised with cautery in midline and taken out laterally with scissors. Superior edge of the fascial incision was grasped, elevated and the underlying layer of rectus muscle was taken off bluntly with scissors. In a similar fashion, the inferior edge of the fascial incision was grasped, elevated and the underlying layer of rectus muscle was taken off bluntly and with scissors. The muscles were bluntly in the midline. The peritoneum was grasped bilaterally with snaps and entered sharply with scissors. The incision was taken superiorly and inferiorly with good visualization of the bladder. The incision was stretched. The patient was placed into Trendelenburg and the heat treat operator's hand was placed into the pelvis. The right ovary was wedged behind the uterus down into the posterior cul-de-sac and was sitting on top of the rectum. This was removed from the posterior cul-de-sac and there was no torsion noted. The ovary was placed up through the incision, surrounded by moistened white surgical towels. Then using a knife, an incision was made over the cystic structure. Unfortunately, there was rupture of the cyst with release of fatty fluid and hair was noted. Then using undermining of the cyst wall from the ovarian stroma, the cyst was gently teased away using Kitners and countertraction until the cyst was able to be delivered from the ovary. The cyst was sent for pathology. The rest of the ovarian tissue appeared normal. No other suspicious masses or concerns were noted. The base where the cyst was removed was hemostatic. The edge of the ovary was reapproximated with 2-0 Vicryl in a running fashion. Hemostasis was noted to be excellent. The ovary was replaced into the pelvis. The muscles then came together nicely in the midline. The fascia was reapproximated with 0 Vicryl starting at the edges and then meeting in the midline. Subcuticular tissue was copiously irrigated with warm normal saline and the skin was closed with 4-0 Vicryl in subcuticular fashion. All sponge, lap, needle counts were correct x2. The patient tolerated the procedure well. Her Israel catheter was removed and she was taken to the recovery room in stable condition. I attest to the content of the Intraoperative Record and any orders documented therein. Any exception s are noted below.
--- NOTE | 2018-05-25 03:26 | Communication Note ---
Date of Service: May 25, 2018 Patient resting in bed. Explained the findings at surgery. She notes the rectal pressure is completely gone! I suspect pain was from the ovary/mass being trapped in the cul de sac. Questions answered.
[2018-05-25] MEDS ORDERED: POLYETHYLENE (MIRALAX) 17 GM PACK PO PRN (08:34)
[2018-05-25] MEDS: OXYCODONE/ACETAMINOPHEN 5mg/325mg TAB PO PRN ×2 (08:34→12:30)
[2018-05-25 08:36] VITALS: BP 123/73; PULSE 78; TEMP 97.9; O2SAT 99
--- NOTE | 2018-05-25 09:02 | Gynecologic Progress Note ---
Date of Service May 25, 2018 Assessment & Plan (1) Dermoid cyst of right ovary: Patient doing well. When meets d/c criteria may go home. Discussed precautions. Call with concerns. Subjective Doing well this am. Standing at the bedside. Ate breakfast, no n/v. Voiding without difficulty. no gas yet. Tolerate oral pain meds. Feeling much better. Physical Exam Vital Signs (Past 24 Hours): Last Vital Signs Temp 36.6 C 05/25/18 08:00 Pulse 78 05/25/18 08:00 Resp 20 05/25/18 08:00 BP 123/73 05/25/18 08:00 Pulse Ox 99 05/25/18 08:00 Constitutional: WD/WN, vitals as above Cardiovascular: Extremities: no edema Gastrointestinal (Abdomen): soft, nd, appropriately tender, incision c/d/i
--- NOTE | 2018-06-02 23:37 | Discharge Summary ---
ADMISSION DIAGNOSES: Known recurrent dermoid of the right ovary with sudden-onset rectal pain and discomfort. DISCHARGE DIAGNOSES: Same. PROCEDURES: Minilaparotomy with right ovarian cystectomy. HISTORY OF PRESENT ILLNESS AND HOSPITAL COURSE: The patient is a 33-year-old 8, para 3-0-5-3, with bilateral salpingectomies, who presents to the ED with sudden onset right lower quadrant and rectal pain. Her history is significant for bilateral dermoid cysts for which she underwent LSO and right salpingectomy previously. She was told there is about a 15% chance of recurrence in the right. She had been having bowel issues for several months and is being followed by GI. Recent colonoscopy is concerning for Crohn's disease, but biopsies did not confirm. Recent CT scan on 05/17/2018 showed inflammation of the ileum for which she had been placed on steroids and incidentally found a 7-cm likely dermoid of the right ovary. She notes that the pain she has been having with her bowels is different from this pain. She has seen Dr. Hernandes and had been scheduled for outpatient excision of this dermoid cyst. However, she was doing some house cleaning today when she had sudden onset of low right lower quadrant and rectal pressure, it comes and goes. The rectal pressure makes her unable to sit. She notes the discomfort is much lower than what she typically has associated with her bowel pain. She has not had nausea or vomiting. Her last normal bowel movement was this a.m. She notes her last period was on 05/09/2018. She has been on steroids for the ileitis starting at 40 mg and now to 25 mg daily. The patient had an ultrasound in the ED today showing a 7.7 x 8.3 x 5.0 cm ovary with a 7 cm probable dermoid, no free fluid, no mention of blood flow to either ovary noted on this report, although notes normal color flow surrounding the tissue of the remaining ovary. Her white blood cell count is 13,000. For the rest of the patient's detailed history and physical, please see her history and physical. ASSESSMENT: This is a patient with a recurrence of the dermoid on the right ovary. She had been scheduled for outpatient laparoscopy and evaluation and cystectomy on 06/17/2018. However, there has been a change in her pain status which she notes is very different from the pain she has been experiencing in the bowels. I cannot tell her for a certainty that her one remaining ovary is not torsed. The only way I will know it is to explore it tonight and she consents to exploration. The patient underwent mini laparotomy and a right ovarian cystectomy of approximately an 8 cm dermoid cyst. The patient's postoperative course was uncomplicated. She tolerated a regular diet. She ambulated without difficulty. She voided after the removal of her Israel catheter and she took oral pain medications. The patient was discharged home on postoperative day #0 with Percocet for pain management and will return in 4 weeks for reevaluation.
== END 2018-05-25 12:34 | disposition home or self-care (01) | DRG 743 ==
LOC: ED 17:44 → OR 22:09 → 4N 22:10